=== PATIENT | female | born 1980 | race Asian ===

== ENCOUNTER 2019-08-04 09:52 | Emergency (ER) | payer OTHER ==
[2019-08-04] MEDS ORDERED: Ondansetron INJ* 2 MG/ML VIAL IV ONE (10:40)
--- NOTE | 2019-08-04 10:43 | ED ---
GI/ HPI - HPI Summary HPI Summary: This patient is a 39 year old female presenting to [facility] with a chief complaint of general illness, nausea, and vomiting. The patient is currently 11 weeks . She reports weakness and lightheadedness. She states she is currently experiencing gastrointestinal reflux. She states she had IVF in [place] and she has run out of her nausea medicine that she was prescribed there. She denies diarrhea. Pt denies any fever, chills, erythema of eyes, sore throat, SOB, cough , dysuria, hematuria, myalgia, edema, or rash. - History of Current Complaint Chief Complaint: EDNauseaVomitDiarrh Time Seen by Provider: 08/04/19 10:36 Stated Complaint: GENERAL ILLNESS- PT 11 WKS PREG Hx Obtained From: Patient Timing: Constant Severity: Severe Current Severity: Severe Pain Intensity: 4 Location of Pain: RLQ, LLQ Associated Signs and Symptoms: Positive: Nausea, Vomiting - Allergy/Home Medications Allergies/Adverse Reactions: Allergies Allergy/AdvReac Type Severity Reaction Status Date / Time No Known Allergies Allergy Verified 08/04/19 10:32 Home Medications: Home Medications Cholecalciferol TAB* [Vitamin D TAB*] 1,000 unit PO DAILY 08/04/19 [History Confirmed 08/04/19] Folic Acid TAB* [Folvite TAB*] 1 mg PO DAILY 08/04/19 [History Confirmed ] Vitamin TAB* 1 tab PO DAILY 08/04/19 [History Confirmed 08/04/19] PMH/Surg Hx/FS Hx/Imm Hx Endocrine/Hematology History: Denies: Hx Diabetes Cardiovascular History: Denies: Hx Coronary Artery Disease Infectious Disease History: No Infectious Disease History: Reports: Traveled Outside the [place] in Last 30 Days - [facility] - Family History Known Family History: Negative: Cardiac Disease - Social History Alcohol Use: None Substance Use Type: Reports: None Smoking Status (MU): Never Smoked Tobacco Review of Systems Negative: Fever, Chills Negative: Erythema Negative: Sore Throat Positive: Chest Pain - "Heart Burn" Negative: Shortness Of Breath, Cough Positive: Abdominal Pain, Vomiting, Nausea. Negative: Diarrhea Negative: dysuria, hematuria Negative: Myalgia, Edema Negative: Rash Neurological: Other - Light headedness Positive: Weakness All Other Systems Reviewed And Are Negative: No Physical Exam - Summary Physical Exam Summary: Constitutional: Well-developed, Well-nourished, Alert. (-) Distressed Skin: Warm, Dry HENT: Normocephalic; Atraumatic Eyes: Conjunctiva normal Neck: Musculoskeletal ROM normal neck. (-) JVD, (-) Stridor, (-) Tracheal deviation Cardio: Rhythm regular, rate normal, Heart sounds normal; Intact distal pulses; The pedal pulses are 2+ and symmetric. Radial pulses are 2+ and symmetric. (-) Murmur Pulmonary/Chest wall: Effort normal. (-) Respiratory distress, (-) Wheezes, (-) Rales Abd: Soft, (-) tenderness, (-) Distension, (-) Guarding, (-) Rebound Musculoskeletal: (-) Edema Lymph: (-) Cervical adenopathy Neuro: Alert, Oriented x3 Psych: Mood and affect Normal Triage Information Reviewed: Yes Vital Signs On Initial Exam: Initial Vitals Temp Pulse Resp BP Pulse Ox 98.1 F 86 14 136/92 97 08/04/19 09:53 08/04/19 09:53 08/04/19 09:53 08/04/19 09:53 08/04/19 09:53 Vital Signs Reviewed: Yes Procedures - Sedation Patient Received Moderate/Deep Sedation with Procedure: No Diagnostics - Vital Signs Vital Signs Temp Pulse Resp BP Pulse Ox 08/04/19 10:28 89 117/78 99 08/04/19 09:53 98.1 F 86 14 136/92 97 - Laboratory Result Diagrams: 08/04/19 10:54 08/04/19 10:54 Lab Statement: Any lab studies that have been ordered have been reviewed, and results considered in the medical decision making process. GIGU Course/Dx - Course Course Of Treatment: This patient is a 39 year old female presenting to [facility] with a chief complaint of general illness, nausea, and vomiting. Physical exam and labs were unremarkable. The patient was administered Zofran and NS in the ED and will be prescribed nausea medication. The patient will be instructed to follow up with her OBGYN back home. This plan for discharge was discussed with the patient and she was agreeable with this plan. - Diagnoses Provider Diagnoses: Hyperemesis gravidarum, Dehydration Discharge ED - Sign-Out/Discharge Documenting (check all that apply): Patient Departure - Discharge - Discharge Plan Condition: Stable Disposition: HOME Prescriptions: Ondansetron ODT TAB* [Zofran 4 MG Odt TAB*] 4 mg PO Q8H PRN #30 tab.odt PRN Reason: Nausea/Vomiting Patient Education Materials: Hyperemesis Gravidarum (ED) Additional Instructions: Keep your OBGYN appointment in [facility] for follow up on this problem. If symptoms return, go to [facility] at [address] [place] [address]. Return to ED with new or worsening symptoms. - Attestation Statements Document Initiated by Scribe: Yes Documenting Scribe: Mark Gallagher Provider For Whom Scribe is Documenting (Include Credential): Ciro Smith MD Scribe Attestation: I, Mark Gallagher, scribed for Ciro Smith MD on 08/04/19 at 1246. Status of Scribe Document: Ready
[2019-08-04] MEDS: NS 0.9% 1000 ML** 2,000 ML IV ONE (10:53)
[2019-08-04 11:08] LABS: ABS Basophils 0.1 10^3/ul (0-0.2); ABS Lymphocytes 1.2 10^3/ul (1.0-4.8); ABS Monocytes 0.9 10^3/ul (0-0.8); Eosinophil % 0.3 %; Hematocrit 35 % (35-47); Hemoglobin 11.9 g/dL (12.0-16.0); Lymphocyte % 10.8 %; Mean Corpuscular HGB Conc 34 g/dL (31-36); Mean Corpuscular Hemoglobin 31 pg (27-31); Mean Corpuscular Volume 92 fL (80-97); Mean Platelet Volume 7.9 fL (7.4-10.4); Platelet Count 227 10^3/uL (150-450); Red Blood Count 3.79 10^6 /uL (3.70-4.87); Red Cell Distribution Width 13 % (10-15); White Blood Count 11.2 10^3/uL (3.5-10.8)
[2019-08-04 11:16] LABS: Albumin 3.6 g/dL (3.2-5.2); Anion Gap 4 mmol/L (2-11); CO2 Carbon Dioxide 25 mmol/L (22-32); Calcium 9.4 mg/dL (8.6-10.3); Chloride 102 mmol/L (101-111); Potassium 3.9 mmol/L (3.5-5.0); Sodium 131 mmol/L (135-145)
[2019-08-04 11:22] LABS: ALT 17 U/L (7-52); AST 13 U/L (13-39); Albumin/Globulin Ratio 1.2 (1-3); Alkaline Phosphatase 37 U/L (34-104); BUN/Creatinine Ratio 21.6 (8-20); Blood Urea Nitrogen 8 mg/dL (6-24); C Reactive Protein < 1.00 mg/L (<8.01); EGFR Non-African American 193.4 (>60); Globulin 2.9 g/dL (2-4); Glucose 89 mg/dL (70-100); Total Protein 6.5 g/dL (6.4-8.9)
[2019-08-04 12:36] LABS: Urine Appearance Cloudy; Urine Bilirubin Negative (Negative); Urine Blood Negative (Negative); Urine Color Yellow; Urine Glucose Negative (Negative); Urine Ketones 1+ (Negative); Urine Nitrite Negative (Negative); Urine Protein Negative (Negative); Urine Specific Gravity 1.006 (1.010-1.030); Urine Urobilinogen Negative (Negative)
[2019-08-04 13:16] VITALS: BP 102/61
== END 2019-08-04 13:16 | disposition home or self-care (01) ==
LOC: ED 09:52
DX: O21.1 Hyperemesis gravidarum with metabolic disturbance (principal); E86.0 Dehydration; Z3A.11 11 weeks gestation of pregnancy; Z79.899 Other long term (current) drug therapy
CPT/HCPCS: 36415; 80053; 81003; 83605; 83690; 85025; 86140; 96361; 96374; 99283; J2405